=== PATIENT | female | born 1990 | race Caucasian/White ===

== ENCOUNTER 2020-05-15 10:50 | Outpatient (REF) | payer OTHER, SELFPAY ==
[2020-05-15 12:52] LABS: COVID-19 Test Negative (Negative)
== END 2020-05-15 10:51 | disposition home or self-care (01) ==
LOC: HO.LAB 10:50
PROVIDERS: PCP Family Medicine; Visit Provider Internal Medicine
DX: Z20.828 Contact with and (suspected) exposure to other viral communicable diseases (principal)
CPT/HCPCS: 87635

== ENCOUNTER 2020-06-04 12:02 | Outpatient (REF) | payer OTHER, SELFPAY ==
[2020-06-04 13:01] LABS: COVID-19 Test Negative (Negative)
== END 2020-06-04 12:03 | disposition home or self-care (01) ==
LOC: HO.LAB 12:02
PROVIDERS: PCP Family Medicine; Visit Provider Internal Medicine
DX: Z20.828 Contact with and (suspected) exposure to other viral communicable diseases (principal)
CPT/HCPCS: 87635; C9803

== ENCOUNTER 2020-06-24 15:32 | Outpatient (REF) | payer OTHER, SELFPAY ==
[2020-06-25 09:45] LABS: BV Int Neg Control Negative (Negative); BV Int Pos Control Positive (Positive)
== END 2020-06-24 15:33 | disposition home or self-care (01) ==
LOC: HO.LAB 15:32
PROVIDERS: PCP Family Medicine; Visit Provider Advanced Practice Midwife
DX: N89.8 Other specified noninflammatory disorders of vagina (principal)
CPT/HCPCS: 87480; 87510; 87660

== ENCOUNTER 2020-06-25 05:54 | Outpatient (REF) | payer OTHER, SELFPAY ==
[2020-06-25 06:43] LABS: COVID-19 Test Negative (Negative)
== END 2020-06-25 05:55 | disposition home or self-care (01) ==
LOC: HO.EMPCOV 05:54
PROVIDERS: Visit Provider Internal Medicine
DX: Z20.828 Contact with and (suspected) exposure to other viral communicable diseases (principal)
CPT/HCPCS: 87635; C9803

== ENCOUNTER 2020-06-27 05:53 | Outpatient (REF) | payer OTHER, SELFPAY ==
[2020-06-27 06:21] LABS: COVID-19 Test Negative (Negative)
== END 2020-06-27 05:54 | disposition home or self-care (01) ==
LOC: HO.EMPCOV 05:53
PROVIDERS: Visit Provider Internal Medicine
DX: Z20.828 Contact with and (suspected) exposure to other viral communicable diseases (principal)
CPT/HCPCS: 87635; C9803; U0003

== ENCOUNTER 2020-07-02 08:24 | Outpatient (REF) | payer OTHER, SELFPAY ==
[2020-07-02 08:47] LABS: COVID-19 Test Negative (Negative)
== END 2020-07-02 08:25 | disposition home or self-care (01) ==
LOC: HO.LAB 08:24
PROVIDERS: Visit Provider Internal Medicine
DX: Z20.828 Contact with and (suspected) exposure to other viral communicable diseases (principal)
CPT/HCPCS: 87635; C9803

== ENCOUNTER 2021-08-06 08:18 | Outpatient (REF) | payer OTHER, SELFPAY ==
[2021-08-06 09:39] LABS: COVID-19 Test Negative (Negative)
== END 2021-08-06 08:19 | disposition home or self-care (01) ==
LOC: HO.LAB 08:18
PROVIDERS: Visit Provider Internal Medicine
DX: Z20.822 Contact with and (suspected) exposure to COVID-19 (principal)
CPT/HCPCS: 87635

== ENCOUNTER 2021-08-10 08:22 | Outpatient (REF) | payer OTHER, SELFPAY ==
[2021-08-10 09:41] LABS: COVID-19 Test Negative (Negative); IDNOW Serial# 9DD0AD1C
== END 2021-08-10 08:23 | disposition home or self-care (01) ==
LOC: HO.LAB 08:22
PROVIDERS: Visit Provider Internal Medicine
DX: Z20.822 Contact with and (suspected) exposure to COVID-19 (principal)
CPT/HCPCS: 87635

== ENCOUNTER 2021-12-16 12:39 | Day surgery (SDC) | payer OTHER, SELFPAY ==
[2021-12-14 09:36] VITALS: BMI 22.8
--- NOTE | 2021-12-15 10:22 | HO.ANESPROP2 ---
Documented by User: Ave Alvarado NP 12/15/21 10:23 HPI - Anesthesia Eval Consult details Narrative: 31yo F for Eye Muscle Recession/Resection,RIGHT lateral rectus recession,RIGHT medial rectus recession PCP cleared [facility] Active Problems Active Problems: All Active Problems (Updated 12/14/21 @ 09:35 by Dianne Arzola, FRANDY) Vaginal irritation (Acute) Past Medical History Medical History (Updated 12/16/21 @ 13:00 by eRnetta Linares RN) ADHD History of anxiety History of miscarriage Lazy eye No pertinent past medical history Social History Social History (Updated 06/24/20 @ 16:03 by Katerin Cai CMA) Alcohol intake: never Patient Tobacco Use Status: Former Tobacco user Quit Date: 2017 Tobacco use type: Cigarette Use of substances other than those prescribed or required for medical reasons: Yes Are you DNR?: No Advance Directives: No Advance Directives Information Provided: Yes Recently lost weight without trying: Yes How much weight loss: 34pounds or more Patient : No (ucg negative) Gender identity: Female Meds Allergies Allergy/AdvReac Type Severity Reaction Status Date / Time No Known Allergies Allergy Verified 12/14/21 09:27 [No Known Allergies*] Home Medications Medication Instructions Recorded Confirmed Last Taken Type dextroamphetamine-amphetamine ER 1 cap PO QAM 12/14/21 12/14/21 Unknown History 10 mg 24hr capsule,extend release (Adderall XR) Exam Exam Date and Time: December 15, 2021 1022 Height,Weight and Vital Signs: Height 6 ft Weight 76.204 kg Assessment and Plan Assessment Anesthesia Assessment: Chart Reviewed Documented by User: Holli Verduzco MD 12/16/21 13:07 [facility] Past Medical History Medical History (Updated 12/16/21 @ 13:00 by Renetta Linares RN) ADHD History of anxiety History of miscarriage Lazy eye No pertinent past medical history Family History Family history of problems with anesthesia: No Surgical History History of Problems with Anesthesia: No Social History Social History (Updated 06/24/20 @ 16:03 by Katerin Cai [facility]) Alcohol intake: never Patient Tobacco Use Status: Former Tobacco user Quit Date: 2017 Tobacco use type: Cigarette Use of substances other than those prescribed or required for medical reasons: Yes Are you DNR?: No Advance Directives: No Advance Directives Information Provided: Yes Recently lost weight without trying: Yes How much weight loss: 34pounds or more Patient : No (ucg negative) Gender identity: Female Meds Allergies Allergy/AdvReac Type Severity Reaction Status Date / Time No Known Allergies Allergy Verified 12/14/21 09:27 [No Known Allergies*] Home Medications Medication Instructions Recorded Confirmed Last Taken Type dextroamphetamine-amphetamine ER 1 cap PO QAM 12/14/21 12/14/21 Unknown History 10 mg 24hr capsule,extend release (Adderall XR) Exam Airway Mallampati Class: II TM Dist: >3cm Neck ROM: Full Heart: rrrr Lungs: cta Assessment and Plan Assessment Anesthesia Assessment: Anesthesia Plan Discussed Final Anesthetic Review Family History of Problems with Anesthesia: No History of Problems with Anesthesia: No NPO: Yes ASA Class: II Final Preanesthetic Review: No Changes in Pt Med Stat, Meds/Allgs Chart Reviewed and Consent Obtained/Reviewed Patient Risk: Intermediate Procedure Risk: Intermediate Anesthetic Plan Anesthetic Plan: GA Disposition: Standard PACU
[2021-12-16 12:56] VITALS: BMI 20.9
[2021-12-16 13:09] VITALS: BP 115/86; PULSE 74; RESP 16; TEMP 37.2; O2SAT 100
[2021-12-16 13:10] LABS: UPreg QC Valid YES; Urine Pregnancy NEGATIVE (NEGATIVE)
[2021-12-16] MEDS: Lactated Ringers 1,000 ML 100 ML IVCONT (13:34)
--- NOTE | 2021-12-16 16:10 | HO.OPHTHAL ---
Ophthalmology Operative Note Date of Service: 12/16/21 Narrative: Diagnosis exotropia. Procedures 1. Recession of left lateral rectus muscle 8 mm 2. Resection of left medial rectus muscle [address] Barillas. Anesthesia general. Complications none. The patient was brought to the operating room placed under general anesthesia. Patient's left eye was prepped and draped in the usual sterile ophthalmic fashion. A lid speculum was placed in the eye and an incision was made and a francoise sclera in the inferotemporal fornix. The lateral rectus muscle was hooked and secured with a double-armed Vicryl suture. The muscle was then disinserted from the globe and reattached to a position 8 mm behind its original insertion. An incision was then made at bare sclera in the infero nasal fornix. The medial rectus muscle was hooked and the overlying fascial attachments were dissected free. A [place] muscle clamp was placed and a 6 mm resection was marked off with cautery. The resection point was then secured with a double-armed Vicryl suture and the distal muscle resected. The resection point was drawn forward to the original insertion with a Vicryl suture. Conjunctiva was closed with interrupted Vicryl sutures. The patient was then awoken from general anesthesia and discharged to postop recovery in good condition.
[2021-12-16] MEDS: Acetaminophen 325 MG TABLET 650 MG PO (16:38)
[2021-12-16] MEDS: oxyCODONE HCl Immed Release 5 MG TABLET PO (16:40)
[2021-12-16] MEDS: ondansetron HCL 4 MG/2 ML VIAL IVPUSH (16:41)
== END 2021-12-16 16:50 | disposition home or self-care (01) ==
PROVIDERS: Nurse Practitioner; Visit Provider Ophthalmology
PROC: (CPT 67312; principal; 2021-12-16 14:20)
DX: H50.111 Monocular exotropia, right eye (principal); H53.2 Diplopia; H53.002 Unspecified amblyopia, left eye; B35.1 Tinea unguium; F90.9 Attention-deficit hyperactivity disorder, unspecified type; Z79.899 Other long term (current) drug therapy
CPT/HCPCS: 67312; 81025; J1100; J2250; J2405; J3010

== ENCOUNTER 2022-05-28 10:06 | Emergency (ER) | payer OTHER, SELFPAY ==
[2022-05-28 10:08] VITALS: BP 142/82; PULSE 62; RESP 19; TEMP 36.6; O2SAT 100; BMI 19.8
--- NOTE | 2022-05-28 10:45 | ED.NECK ---
HPI - Neck Pain/Injury General Chief Complaint: Neck Pain/Injury Stated Complaint: neck pain Time Seen by Provider: 05/28/22 10:21 Source: patient Mode of arrival: ambulatory Limitations: no limitations History of Present Illness HPI Narrative: This is a 32-year-old female who is healthy who presents with 1 month of intermittent neck discomfort. Patient reports she has been using ibuprofen, alternating heat and ice and doing some gentle massage with continued symptoms. Today when she sat up she felt worsening pain in her neck. No radiation of pain into the arms. No associated numbness or tingling of the upper extremities. No weakness in the upper extremities. No fevers or chills. Patient called her primary care doctor and they recommended she come into the emergency room to be evaluated. Related Data Home Medications Medication Instructions Recorded Confirmed dextroamphetamine-amphetamine ER 1 cap PO QAM 12/14/21 12/14/21 10 mg 24hr capsule,extend release (Adderall XR) fluoxetine 10 mg capsule (Prozac) 10 mg PO DAILY 12/16/21 12/16/21 Previous Rx's Medication Instructions Recorded cyclobenzaprine 10 mg tablet 10 mg PO TID PRN muscle spasm #15 05/28/22 tabs Allergies Allergy/AdvReac Type Severity Reaction Status Date / Time No Known Allergies Allergy Verified 12/14/21 09:27 [No Known Allergies*] Review of Systems Review of Systems: Yes all other systems are reviewed and are negative Constitutional: Constitutional: Reports no additional constitutional complaints, Denies fever(s) and Denies weakness Eyes: Eyes: Denies no additional eye complaints ENT: Reports system reviewed and no additional complaints, except as documented, Denies dizziness and Reports neck pain Cardiovascular: Cardiovascular: Reports no additional cardiovascular complaints, Denies chest pain and Denies dyspnea Respiratory: Respiratory: Reports no additional respiratory complaints and Denies dyspnea Gastrointestinal: Gastrointestinal: Reports no additional gastrointestinal complaints and Denies nausea Genitourinary: Genitourinary: Reports no additional female genitourinary complaints and Denies urinary incontinence Musculoskeletal: Musculoskeletal: Reports no additional musculoskeletal complaints, Denies back pain, Reports neck pain, Denies numbness and Denies tingling Integumentary/Breasts: Skin/Breast: Reports system reviewed and no additional complaints, except as docu Neurologic: Reports system reviewed and no additional complaints, except as documented, Denies Abnormal speech present, Denies dizziness, Denies numbness, Denies tingling and Denies weakness [facility] Past Medical History Attestation statement: The following information was validated with the patient. Source: old records reviewed and nursing notes reviewed Medical History ADHD History of anxiety History of miscarriage Lazy eye No pertinent past medical history Social History Social History Alcohol intake: never Patient Tobacco Use Status: Former Tobacco user Quit Date: 2017 Tobacco use type: Cigarette Advance Directives: No Advance Directives Information Provided: No Gender identity: Female Physical Exam Vital Signs: Vital Signs: Last Vital Signs Temp 98 F 05/28/22 10:08 Pulse 62 05/28/22 10:08 Resp 19 05/28/22 10:08 BP 142/82 H 05/28/22 10:08 Pulse Ox 100 05/28/22 10:08 O2 Del Method 05/28/22 10:08 BMI result Body Mass Index 19.8 Const: General: cooperative, healthy appearing, comfortable and no acute distress Orientation/consciousness: patient oriented x3 Limitations: no limitations HEENT: Head: Yes normal to inspection Ears: hearing grossly normal bilaterally Eyes: General: appearance normal, both eyes and all related structures Neck: Other: There is no cervical midline tenderness. There is palpable soft tissue tenderness and muscle spasms of the bilateral trapezius and soft tissues of the neck. Patient has limited rotation of the head due to pain and muscle spasm. Unable to assess spurlings test d/t pain with movement of the head Neck: Yes normal visual inspection, Yes no lymphadenopathy and Yes no meningeal signs Chest: Chest palpation & inspection: normal inspection of the chest Resp: Effort & Inspection: normal respiratory effort Cardio: Peripheral pulses: Peripheral pulses 2+ throughout Neuro: General: patient oriented x3, moves all extremities, no meningeal signs, no focal motor deficits and normal sensation to monofilament Cognition (Neuro): normal cognition Speech: No Abnormal speech present Gait exam (Neuro): Normal gait present Motor exam (neuro): 5/5 motor strength present throughout Sensory Exam: Normal double simultaneous stimulation for sensation Extrem: General: Yes normal to inspection MDM - Neck Pain/Injury MDM Narrative Medical decision making narrative: 32-year-old female here with atraumatic intermittent neck pain over the last month worsened today. No associated weakness, numbness, tingling of the upper extremities. No reports of fevers or chills. No red flag symptoms or neurological deficits on exam No midline tenderness step-offs deformities. Patient has tenderness of the soft tissue w/ palpable muscle spasm.. Likely muscular -low concern for epidural abscess, malignancy, cord compression with normal neurological exam, no red flag symptoms of fevers, weight loss, no history of immunocompromised state/IVDA Medical Records Attestation: I reviewed the patient's medical records. Lab Data Attestation: I reviewed the patient's lab results. Discharge Plan Discharge Clinical Impression: Muscle spasm Patient Disposition: Home, Self-Care Instructions: Muscle Spasm (ED) Additional Instructions: Heat to the area Gentle stretching Continue ibuprofen Physical therapy would be helpful Prescriptions: New cyclobenzaprine 10 mg tablet 10 mg PO TID PRN (Reason: muscle spasm) Qty: 15 0RF No Action dextroamphetamine-amphetamine [Adderall XR] 10 mg capsule,extended release 24hr 1 cap PO QAM fluoxetine [Prozac] 10 mg Capsule 10 mg PO DAILY Referrals: Physician,Nonstaff [Primary Care Provider] - 1 week Interventions: ED Discharge Assessment Last Done: 05/28/22 10:58 Discharge Date/Time: 05/28/22 11:00
== END 2022-05-28 11:00 | disposition home or self-care (01) ==
PROVIDERS: Emergency Provider Emergency Medicine
DX: M54.2 Cervicalgia (principal); Z87.891 Personal history of nicotine dependence
CPT/HCPCS: 99283

== ENCOUNTER 2024-05-21 09:25 | Outpatient (AMB) | payer OTHER, SELFPAY ==
--- NOTE | 2024-05-21 09:58 | MHC.OFFVIS ---
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 Information Interpreted: non-clinical & clinical Accompanied by: Self / Same As Patient Allergies No Known Allergies [No Known Allergies*] Allergy (Verified 05/21/24 10:01) Is last menstrual period known: Yes HPI Comments Details: Presenting referred from her PCP regarding abnormal Pap showing LSIL HPV high-risk positive PFSH Medical History (Updated 05/21/24 @ 10:17 by Tj Kaye MD) LGSIL on Pap smear of cervix ADHD History of anxiety History of miscarriage No pertinent past medical history Lazy eye Family History (Updated 05/21/24 @ 10:03 by Caroline Olvera CMA) Father HTN (hypertension) Maternal Grandmother Diabetes Paternal Grandmother Breast cancer Social History Household Members: Spouse and Children Housing: House Alcohol intake: never Patient Tobacco Use Status: Never used Tobacco Tobacco use type: Cigarette Current occupational status: unemployed Sexual orientation: Straight/Heterosexual Gender identity: Female Female Reproductive History Menstrual Age of Menarche: 9 Total pregnancies: 3 Full term: 2 Number of Living Children: 2 Ab spontaneous: 1 Physical Exam Vital Signs: BMI result Body Mass Index 20.6 Office Procedures Colposcopy Colposcopy: Pre-Procedure Counseling: Before beginning the procedure, I conducted comprehensive counseling with the patient. We thoroughly discussed the procedure itself, including its details, alternatives, and all associated risks. This included but not limited to the following complications such as bleeding, infection, and injury to the vagina, bladder, and vessels, as well as the potential need for transfusion with all its associated risks. Subsequently, the patient sign the consent. Pap smear result: LSIL/HPV positive. Urine test in office = Negative Procedure: During the procedure, the following steps were performed: A speculum was inserted, and acetic acid was applied. Colposcopy was conducted, allowing visualization of the transformation zone. Acetowhite lesions were identified at the 5+6+7+11+12+1 o'clock position. Cervical biopsies were obtained from the 5+6+7+11+12+1 o'clock position, followed by an endocervical curettage (ECC). Vaginoscopy of the upper vagina revealed no evidence of aceto-white lesions. Hemostasis was achieved using Monsel solution, and the patient tolerated the procedure well. Post-Procedure Instructions: The patient was advised to promptly contact the office or the after hours answering service or go to the emergency room if experiencing a temperature exceeding 100.4?F, abdominal pain, nausea/vomiting, or bleeding. Additionally, the patient was instructed to abstain from vaginal intercourse and bathtub use. The patient confirmed understanding of these instructions. Discharge Instructions: The patient was instructed to schedule a follow-up appointment in 2 weeks for further evaluation and management. Please note that this note was generated using a voice recognition program, and errors may have occurred during brokerage clerk. 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 the false positive/negative rate of a Pap smear as a screening test in detecting cervical cancer and the indication for a diagnostic test -colposcopy, biopsy, endocervical curettage. The patient verbalized understanding and agreed with the plan, all questions answered. Colposcopy/biopsy/ECC done, see procedure Orders: Orders AMB Colposcopy Today R87.612 - Low grade squamous intraepithelial lesion on cytologic smear of cervix (LGSIL) Coding Level of Care Code Procedure Only Diagnoses LGSIL on Pap smear of cervix R87.612 CPT Codes Colposcopy - CPT: 54682-[id number] of cervix including upper vagina with biopsy and ECC ([id number])
[2024-05-21 10:00] VITALS: BP 118/72; BMI 20.6
== END 2024-05-21 10:42 | disposition home or self-care (01) ==
PROVIDERS: Visit Provider Obstetrics & Gynecology
DX: R87.612 Low grade squamous intraepithelial lesion on cytologic smear of cervix (LGSIL) (principal); Z32.02 Encounter for pregnancy test, result negative
CPT/HCPCS: 57454

== ENCOUNTER 2024-05-21 09:25 | Outpatient (REF) | payer OTHER, SELFPAY | END 2024-05-21 09:26 | disposition home or self-care (01) | LOC: HO.LNP 09:25 | PROVIDERS: Visit Provider Obstetrics & Gynecology | DX: R87.612 Low grade squamous intraepithelial lesion on cytologic smear of cervix (LGSIL) (principal) | CPT/HCPCS: 57454; 81025; 88305; 88342; 88360 ==

== ENCOUNTER 2024-07-04 10:34 | Outpatient (AMB) | payer OTHER, SELFPAY ==
--- NOTE | 2024-07-04 10:34 | MHC.OFFVIS ---
Intake Visit Reasons: colpo results Allergies No Known Allergies [No Known Allergies*] Allergy (Verified 05/21/24 10:01) HPI Comments Details: The patient is scheduled a telehealth visit post colpo for follow-up. The patient is doing well with no complaints. The pathology showed the following: A. Endocervix, curettage: Small superficial fragments of inflamed endocervical mucosa and epithelium. B. Cervix, 1 o'clock, biopsy: Small fragment of inflamed cervical transformation zone mucosa with reactive changes. C. Cervix, 5 o'clock, biopsy: Small fragments of inflamed cervical transformation zone mucosa and endocervical mucosa and epithelium with reactive changes. D. Cervix, 6 o'clock, biopsy: - Low-grade squamous intraepithelial lesion (ROMY 1). - Endocervical epithelium within normal limits. E. Cervix, 7 o'clock, biopsy: Squamous and endocervical mucosa within normal limits. F. Cervix, 11 o'clock, biopsy: - Low-grade squamous intraepithelial lesion (ROMY 1). - Background inflamed cervical transformation zone mucosa. G. Cervix, 12 o'clock, biopsy: - Low-grade squamous intraepithelial lesion (ROMY 1). - Background inflamed cervical transformation zone mucosa. Comment: The patient's reported history of LSIL on Pap is noted [facility] Medical History LGSIL on Pap smear of cervix ADHD History of anxiety History of miscarriage No pertinent past medical history Lazy eye Family History Father HTN (hypertension) Maternal Grandmother Diabetes Paternal Grandmother Breast cancer Social History Household Members: Spouse and Children Housing: House Alcohol intake: never Patient Tobacco Use Status: Never used Tobacco Tobacco use type: Cigarette Current occupational status: unemployed Sexual orientation: Straight/Heterosexual Gender identity: Female Female Reproductive History Menstrual Age of Menarche: 9 Review of Systems Const All systems reviewed & are unremarkable except as noted in HPI and below Reports as per HPI and Reports no additional complaints GI Reports no additional complaints Reports no additional complaints Telehealth Telehealth Telehealth Platform: Telephone Location of provider rendering services: practice address Location of patient: address on file Patient Identification confirmed using: Name, : Yes Telehealth method: video Patient verbally consented to treatment: Yes Patient verbally consented to billing insurance company: Yes Patient informed of any privacy concerns related to visit: Yes Assessment & Plan Assessment & Plan (1) Dysplasia of cervix, low grade (ROMY 1): Code(s): N87.0 - Mild cervical dysplasia Category: Medical Plan: Discussed with the patient the pathology results of the colposcopy biopsies & endocervical curettage ( mild dysplasia-ROMY 1). Discussed with the patient the sensitivity specificity, positive and negative predictive value in detecting cervical cancer in addition discussed the regression, persistence and progression rates. Recommended co-testing in 12 months, if cytology and or HPV are abnormal will proceed was colposcopy biopsy and endocervical curettage, if lesions gets worse or stays persistent for 2 years will proceed with loop electric excision procedure. Instructions given to the patient to schedule a co test appointment in 1 year. All questions answered the patient verbalized understanding. I spent a total of 20 minutes reviewing the chart, talking to the patient via video and documenting in the medical record. Coding Level of Care Code Tele Est Pt Level 3 (30910) Diagnoses Dysplasia of cervix, low grade (ROMY 1) N87.0
== END 2024-07-04 11:48 | disposition home or self-care (01) ==
LOC: HO.HWS 10:34
PROVIDERS: Visit Provider Obstetrics & Gynecology
DX: N87.0 Mild cervical dysplasia (principal)
CPT/HCPCS: 99213

== ENCOUNTER 2025-07-09 10:32 | Outpatient (AMB) | payer OTHER, SELFPAY ==
[2025-07-09 10:39] VITALS: BP 122/68; BMI 22.1
--- NOTE | 2025-07-09 10:39 | A.OFFVIS_ITS ---
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 No complaints. Last Pap/HPV LGSIL followed by colpo biopsy ECC which showed ROMY 1 PFSH Medical History (Updated 07/09/25 @ 10:46 by Tj Kaye MD) PTSD (post-traumatic stress disorder) LGSIL on Pap smear of cervix ADHD History of anxiety History of miscarriage No pertinent past medical history Lazy eye Surgical History History of strabismus surgery Family History Father HTN (hypertension) Maternal Grandmother Diabetes Paternal Grandmother Breast cancer Social History Household Members: Spouse and Children Housing: House Alcohol intake: never Patient Tobacco Use Status: Never used Tobacco Tobacco use type: Cigarette Current occupational status: unemployed Sexual orientation: Straight/Heterosexual Gender identity: Female Female Reproductive History Menstrual Age of Menarche: 9 Date of last menstrual period: 06/27/25 Total pregnancies: 3 Number of Living Children: 2 Ab spontaneous: 1 Review of Systems Const All systems reviewed & are unremarkable except as noted in HPI and below Card Reports as per HPI Resp Reports as per HPI GI Reports as per HPI and Reports no additional complaints Reports as per HPI Physical Exam Vital Signs: Last Vital Signs BP 122/68 07/09/25 10:39 BMI result Body Mass Index 22.1 Const General: cooperative, healthy appearing and comfortable Chest Chest palpation & inspection: normal inspection of the chest and normal palpation of entire chest wall Breast/axilla inspection: normal inspection of the breasts and normal inspection of the axillae Breast/axilla palpation: normal palpation of the breasts, normal palpation of the axillae and no axillary lymphadenopathy Resp Effort & Inspection: normal respiratory effort Auscultation: clear to auscultation bilaterally Percussion: percussion normal Cardio Palpation: normal PMI Rate: regular rate Rhythm: regular rhythm Heart sounds: no murmurs and no rubs Peripheral pulses: Peripheral pulses 2+ throughout GI Inspection: Yes normal to inspection Palpation (GI): Soft to palpation, nontender, no guarding, not rigid and No hepatosplenomegaly present Percussion: Yes normal to percussion Auscultation: normal bowel sounds Rectal Exam - Female: deferred General: Yes bladder normal to palpation External Female Exam: No lesion Speculum Exam - Vagina: normal appearance of the vagina, normal palpation, normal vaginal discharge and not erythematous Speculum Exam - Cervix: normal appearance of the cervix and normal palpation Bimanual exam- vagina & uterus: normal bimanual exam, normal palpation, uterine size normal, bladder normal to palpation, consistency normal and normal palpation Bimanual Exam- Adnexa, other: normal adnexae, no masses and no tenderness Assessment & Plan Assessment & Plan (1) Well woman exam: Comment: ROMY 1 since 05/24 Code(s): Z01.419 - Encounter for gynecological examination (general) (routine) without abnormal findings Category: Medical Plan: Cotesting done. Counseled the patient about the recommended dietary allowance of 1000 mg of Calcium & 600 IU of vitamin D. The patient was instructed to perform monthly self-breast exams and to schedule an annual exam in a year; All questions answered and the patient verbalized understanding. Instructed the patient to schedule annual exam in a year Coding Level of Care Code Est Pt Prev Care 18-39y(87431) Diagnoses Well woman exam Z01.419
== END 2025-07-09 11:06 | disposition home or self-care (01) ==
LOC: HO.HWS 10:32
PROVIDERS: Visit Provider Obstetrics & Gynecology
DX: Z01.419 Encounter for gynecological examination (general) (routine) without abnormal findings (principal)
CPT/HCPCS: 99395; 99459

== ENCOUNTER 2025-07-09 10:32 | Outpatient (REF) | payer OTHER, SELFPAY | END 2025-07-09 10:33 | disposition home or self-care (01) | LOC: HO.LNP 10:32 | PROVIDERS: Visit Provider Obstetrics & Gynecology | DX: Z01.419 Encounter for gynecological examination (general) (routine) without abnormal findings (principal); Z11.51 Encounter for screening for human papillomavirus (HPV) | CPT/HCPCS: 87626; 88175 ==